=== PATIENT | male | born 1945 | race Caucasian/White ===

== ENCOUNTER 2023-01-03 06:57 | Emergency (ER) | payer BC ==
[~2023-01-03] VITALS: Ht 188 cm; Wt 99.8 kg
[~2023-01-03 06:57] MED LIST: ATOR40TA PO; DILT240C94 PO; FERR236T3 PO; GEMF600T89 PO; LEVO175T2 PO; LOSA-416 PO; NOVRI SQ; NPH,100V2 SQ; OMEG-15 PO; OMEP20CA15 PO; PRAM2.254 PO; RIVA10TA PO; SERT50TA PO; UBID10CA4 PO; ZINC100T2 PO
[2023-01-03 07:16] VITALS: BP 160/81; PULSE 72; TEMP 98.5; O2SAT 95
[2023-01-03] MEDS ORDERED: oxyCODONE/APAP 10/325mg tablet PO ONE (08:20)
[2023-01-03 08:36] VITALS: RESP 16
[2023-01-03 08:38] LABS: BILIRUBIN,URINE NEGATIVE (Neg); CLARITY,URINE CLEAR (Clear); COLOR,URINE YELLOW (Yellow); GLUCOSE, URINE NEGATIVE (Neg); KETONES,URINE NEGATIVE (Neg); LEUKOCYTE ESTERASE ,URINE NEGATIVE (Neg); NITRITES, URINE NEGATIVE (Neg); OCCULT BLOOD,URINE TRACE-INTACT (Neg); PH,URINE 5.5 (4.8-8.0); PROTEIN,URINE 100 mg/dl (Neg); UROBILINOGEN,URINE 0.2 E.U/dL (0.2-1.0)
[2023-01-03 08:39] LABS: UA COLLECTION TYPE CLN CATCH MIDSTREAM
[2023-01-03 08:44] LABS: SQUAMOUS EPITHELIAL CELL,UR FEW /LPF (FEW)
[2023-01-03 08:45] LABS: BACTERIA,URINE FEW /HPF (Neg); RBC,URINE 0-2 /HPF (0-2); WBC,URINE 0-4 /HPF (0-4)
[2023-01-03 08:53] LABS: BASOPHILS # (AUTO) 0.1 X10'3 (0-0.2); BASOPHILS % (AUTO) 0.7 % (0-1); EOSINOPHILS # (AUTO) 0.1 X10'3 (0-0.9); EOSINOPHILS % (AUTO) 1.1 % (0-6); HEMOGLOBIN 13.6 g/dl (14.0-17.9); LYMPHOCYTES # (AUTO) 2.7 X10'3 (1.1-4.8); LYMPHOCYTES % (AUTO) 22.7 % (21-51); MEAN CORPUSCULAR HGB CONC 32.3 g/dL (33.0-36.5); MEAN CORPUSCULAR VOLUME 92.7 FL (78-98); MONOCYTES % (AUTO) 8.4 % (2-12); NEUTROPHILS % (AUTO) 67.1 % (42-75); PLATELET COUNT 373 X10'3 (140-440); RED BLOOD COUNT 4.53 X10'6 (4.70-6.10); RED CELL DISTRIBUTION WIDTH 14.7 % (11.5-14.5); WHITE BLOOD COUNT 11.9 X10'3 (4.5-11.0)
[2023-01-03 09:00] LABS: ALANINE AMINOTRANSFERASE 26 U/L (12-78); ALBUMIN 3.6 G/DL (3.4-5.0); ALBUMIN/GLOBULIN RATIO 0.8 (1.1-1.5); ALKALINE PHOSPHATASE 103 IU/L (46-116); ANION GAP 10 (8-16); ASPARTATE AMINO TRANSFERASE 34 U/L (10-37); BILIRUBIN,TOTAL 0.5 MG/DL (0.1-1.0); BLOOD UREA NITROGEN 19 MG/DL (7-18); BUN/CREATININE RATIO 16.2 (10.0-20.0); CALCIUM 9.3 MG/DL (8.5-10.1); CHLORIDE 103 MMOL/L (99-107); CREATININE 1.17 MG/DL (0.60-1.10); GLUCOSE 104 MG/DL (70-104); POTASSIUM 4.2 MMOL/L (3.5-5.1); SODIUM 136 MMOL/L (135-145); TOTAL CARBON DIOXIDE 23.3 MMOL/L (24-32); eCRCL 62 ML/MIN; eGFR 61 ML/MIN
[2023-01-03 09:07] LABS: PRO BRAIN NATRIURETIC PEPTIDE 764 PG/ML (0-450)
[2023-01-03] MEDS ORDERED: OXYC-138 PO (10:24)
[2023-01-03] MEDS ORDERED: HYDR-3972 PO (10:59)
== END 2023-01-03 10:47 | disposition home or self-care (01) ==
LOC: ER 06:58
DX: S22.41XA Multiple fractures of ribs, right side, initial encounter for closed fracture (principal); Z79.899 Other long term (current) drug therapy; Z79.84 Long term (current) use of oral hypoglycemic drugs; W19.XXXA Unspecified fall, initial encounter; Y93.89 Activity, other specified; Y92.89 Other specified places as the place of occurrence of the external cause; Y99.8 Other external cause status
CPT/HCPCS: 36415; 71250; 80053; 81001; 83880; 84145; 85025; 99284

== ENCOUNTER 2023-04-19 10:15 | Inpatient (IN) | payer BC ==
[~2023-04-19] VITALS: Ht 177.8 cm; Wt 110.5 kg
[~2023-04-19 10:15] MED LIST changes: +OXYC-138 PO
[2023-04-19 10:52] LABS: BASOPHILS # (AUTO) 0.2 X10'3 (0-0.2); BASOPHILS % (AUTO) 1.1 % (0-1); EOSINOPHILS # (AUTO) 0.1 X10'3 (0-0.9); EOSINOPHILS % (AUTO) 0.3 % (0-6); HEMATOCRIT 43.1 % (42.0-52.0); HEMOGLOBIN 14.1 g/dl (14.0-17.9); LYMPHOCYTES # (AUTO) 0.8 X10'3 (1.1-4.8); LYMPHOCYTES % (AUTO) 3.7 % (21-51); MEAN CORPUSCULAR HGB CONC 32.6 g/dL (33.0-36.5); MONOCYTES # (AUTO) 0.7 X10'3 (0-0.9); MONOCYTES % (AUTO) 3.3 % (2-12); NEUTROPHILS # (AUTO) 20.1 X10'3 (1.8-7.7); NEUTROPHILS % (AUTO) 91.6 % (42-75); PLATELET COUNT 377 X10'3 (140-440); RED BLOOD COUNT 4.68 X10'6 (4.70-6.10); WHITE BLOOD COUNT 21.9 X10'3 (4.5-11.0)
[2023-04-19 11:08] LABS: ALANINE AMINOTRANSFERASE 32 U/L (12-78); ALBUMIN 3.4 G/DL (3.4-5.0); ALBUMIN/GLOBULIN RATIO 0.7 (1.1-1.5); ALKALINE PHOSPHATASE 124 IU/L (46-116); ASPARTATE AMINO TRANSFERASE 40 U/L (10-37); BILIRUBIN,TOTAL 0.7 MG/DL (0.1-1.0); BLOOD UREA NITROGEN 24 MG/DL (7-18); BUN/CREATININE RATIO 14.8 (10.0-20.0); CALCIUM 9.1 MG/DL (8.5-10.1); CHLORIDE 99 MMOL/L (99-107); CREATININE 1.62 MG/DL (0.60-1.10); GLUCOSE 243 MG/DL (70-104); TOTAL CARBON DIOXIDE 19.9 MMOL/L (24-32); TOTAL PROTEIN 8.1 G/DL (6.4-8.2); eCRCL 40 ML/MIN; eGFR 42 ML/MIN
[2023-04-19 11:11] LABS: ANION GAP 14 (8-16); POTASSIUM 3.6 MMOL/L (3.5-5.1); SODIUM 133 MMOL/L (135-145)
[2023-04-19] MEDS ORDERED: piperacillin/tazo 3.375gm/50ml 50 ML IV ONE (11:20)
[2023-04-19 11:43] LABS: PRO BRAIN NATRIURETIC PEPTIDE 2712 PG/ML (0-450)
[2023-04-19] MEDS ORDERED: normal saline 1000ml 1,000 ML IV ONE (12:25)
[2023-04-19] MEDS ORDERED: normal saline 1000ML IV soln IVB ONE (12:55)
[2023-04-19] MEDS ORDERED: azithromycin/NS 500mg/250ml 250 ML IV ONE (13:50)
[2023-04-19] MEDS ORDERED: magnesium 4gm in 100ml NS 100 ML IV PRN (14:00)
[2023-04-19] MEDS ORDERED: acetaminophen 650mg rectal suppository RC PRN (14:00)
[2023-04-19] MEDS ORDERED: magnesium 2GM in 50ml NS 50 ML IV PRN (14:00)
[2023-04-19] MEDS ORDERED: normal saline 1000ml 1,000 ML IV SCH (14:00)
[2023-04-19] MEDS ORDERED: mag hydrox/Alum hydrox/simeth 30ml oral suspension PO PRN (14:00)
[2023-04-19] MEDS ORDERED: ondansetron/PF 4mg/2ml inj IV PRN (14:00)
[2023-04-19] MEDS ORDERED: potassium Cl 40MEQ/1/2NS 520ml 520 ML IV PRN (14:00)
[2023-04-19] MEDS ORDERED: magnesium hydroxide 30ml (MOM) UD suspension PO PRN (14:00)
[2023-04-19] MEDS ORDERED: magnesium Cl slow-release 64mg tablet PO PRN (14:00)
[2023-04-19] MEDS ORDERED: potassium Cl 20 mEq SR tablet PO PRN ×2 (14:00)
[2023-04-19 15:34] LABS: BILIRUBIN,URINE SMALL (Neg); CLARITY,URINE TURBID (Clear); COLOR,URINE YELLOW (Yellow); GLUCOSE, URINE NEGATIVE (Neg); KETONES,URINE NEGATIVE (Neg); LEUKOCYTE ESTERASE ,URINE SMALL (Neg); NITRITES, URINE NEGATIVE (Neg); OCCULT BLOOD,URINE MODERATE (Neg); PH,URINE 5.5 (4.8-8.0); PROTEIN,URINE >=300 mg/dl (Neg); UROBILINOGEN,URINE 0.2 E.U/dL (0.2-1.0)
[2023-04-19 15:41] LABS: UA COLLECTION TYPE CLN CATCH MIDSTREAM
[2023-04-19 15:44] LABS: WBC,URINE TNTC /HPF (0-4)
[2023-04-19 15:52] LABS: SQUAMOUS EPITHELIAL CELL,UR FEW /LPF (FEW)
[2023-04-19 15:54] LABS: TRANSITIONAL EPI CELLS,URINE MODERATE /HPF
[2023-04-19 15:59] LABS: BACTERIA,URINE 4+ /HPF (Neg); WBC CLUMPS,URINE MODERATE /HPF (NEGATIVE)
[2023-04-19] MEDS: piperacillin/tazo 3.375gm/50ml 50 ML IV SCH (16:00)
[2023-04-19 16:03] LABS: CELLULAR CAST 0-4 /LPF (NEGATIVE)
[2023-04-19 16:05] LABS: FINE GRANULAR CAST 0-3 /LPF (NEGATIVE)
[2023-04-19 16:20] LABS: AMORPHOUS URATES 2+
[2023-04-19 16:52] LABS: MAGNESIUM 1.5 MG/DL (1.5-2.4)
[2023-04-19] MEDS ORDERED: furosemide 40mg/4ml inj IV STA (17:26)
[2023-04-19 17:39] LABS: ABG HCO3 18.8 mmol/L (22.0-26.0); ABG OXYGEN SATURATION 95.5 % (94-97); ABG PCO2 (T) 35.1 mmHg (35.0-48.0); ABG PH (T) 7.346 (7.340-7.440); ALLEN'S TEST POSITIVE; FCOHb 0.7 % (0.0-3.9); FHHb 4.5 % (0.0-5.0); FLOW 6 L/min; FMetHb 0.3 % (0.0-1.5); FO2Hb 94.5 % (94-97); MODE NASAL CANNULA; TOTAL HEMOGLOBIN 14.4 G/dl (14.0-17.9)
[2023-04-19] MEDS: acetaminophen 325mg tablet PO PRN (19:05)
[2023-04-19] MEDS: furosemide 40mg/4ml inj IV SCH (20:57)
[2023-04-19] MEDS: docusate sod 100mg capsule PO SCH (20:57)
[2023-04-19] MEDS: K and/or MAG REPLACEMENT MC SCH (20:58)
[2023-04-19] MEDS ORDERED: temazepam 15mg capsule PO PRN (21:00)
[2023-04-19 21:43] LABS: MAGNESIUM 1.5 MG/DL (1.5-2.4); POTASSIUM 3.8 MMOL/L (3.5-5.1)
[2023-04-20] MEDS: piperacillin/tazo 3.375gm/50ml 50 ML IV SCH ×3 (00:43→16:32)
[2023-04-20] MEDS: K and/or MAG REPLACEMENT MC SCH ×2 (08:00→20:00)
[2023-04-20] MEDS ORDERED: azithromycin 250mg tablet PO SCH (08:00)
[2023-04-20 08:51] LABS: EOSINOPHILS % (AUTO) 0 % (0-6); HEMOGLOBIN 13.1 g/dl (14.0-17.9); LYMPHOCYTES # (AUTO) 2.7 X10'3 (1.1-4.8); MEAN CORPUSCULAR HGB CONC 32.3 g/dL (33.0-36.5); MEAN PLATELET VOLUME 9.6 FL (7.4-10.4)
[2023-04-20] MEDS: docusate sod 100mg capsule PO SCH ×2 (08:52→20:00)
[2023-04-20 08:54] LABS: BASOPHILS # (AUTO) 0.1 X10'3 (0-0.2); BASOPHILS % (AUTO) 0.3 % (0-1); HEMATOCRIT 40.6 % (42.0-52.0); LYMPHOCYTES % (AUTO) 9.9 % (21-51); MEAN CORPUSCULAR HEMOGLOBIN 29.7 PG (27.0-31.0); MEAN CORPUSCULAR VOLUME 91.8 FL (78-98); MONOCYTES # (AUTO) 1.4 X10'3 (0-0.9); NEUTROPHILS # (AUTO) 23.4 X10'3 (1.8-7.7); NEUTROPHILS % (AUTO) 84.8 % (42-75); PLATELET COUNT 335 X10'3 (140-440); RED BLOOD COUNT 4.42 X10'6 (4.70-6.10); RED CELL DISTRIBUTION WIDTH 15.2 % (11.5-14.5)
[2023-04-20] MEDS: acetaminophen 325mg tablet PO PRN ×2 (08:57→15:28)
[2023-04-20 09:01] LABS: WHITE BLOOD COUNT 27.5 X10'3 (4.5-11.0)
[2023-04-20 09:26] LABS: ANION GAP 13 (8-16); BLOOD UREA NITROGEN 31 MG/DL (7-18); BUN/CREATININE RATIO 17.5 (10.0-20.0); CHLORIDE 101 MMOL/L (99-107); CREATININE 1.77 MG/DL (0.60-1.10); GLUCOSE 175 MG/DL (70-104); POTASSIUM 3.5 MMOL/L (3.5-5.1); SODIUM 136 MMOL/L (135-145)
[2023-04-20 09:27] LABS: ALANINE AMINOTRANSFERASE 39 U/L (12-78); ALBUMIN 3.1 G/DL (3.4-5.0); ALBUMIN/GLOBULIN RATIO 0.6 (1.1-1.5); ALKALINE PHOSPHATASE 87 IU/L (46-116); ASPARTATE AMINO TRANSFERASE 125 U/L (10-37); BILIRUBIN,TOTAL 0.9 MG/DL (0.1-1.0); CALCIUM 8.8 MG/DL (8.5-10.1); MAGNESIUM 1.7 MG/DL (1.5-2.4); TOTAL PROTEIN 7.9 G/DL (6.4-8.2); eCRCL 37 ML/MIN; eGFR 38 ML/MIN
[2023-04-20] MEDS ORDERED: VANCOmycin 2,000MG in NS 500ml IV soln IV ONE (09:30)
[2023-04-20 10:39] LABS: PLATELET ESTIMATE NORMAL; TOTAL CELLS COUNTED 100
[2023-04-20] MEDS: furosemide 40mg/4ml inj IV SCH (11:23)
[2023-04-20] MEDS ORDERED: MESSAGE TO PHARMACY PO ONE (14:05)
[2023-04-20] MEDS ORDERED: dextrose 50%-water 50ml dispensing syringe IV PRN ×2 (14:05)
[2023-04-20] MEDS ORDERED: DEXTROSE 15 GM of carb/4 tabs (each vial/BOTTLE has 4 tablets) PO PRN ×2 (14:05)
[2023-04-20] MEDS ORDERED: glucagon, human recombinant 1mg kit SUBCUT PRN (14:05)
[2023-04-20] MEDS ORDERED: FLO0.4C PO (14:38)
[2023-04-20] MEDS ORDERED: SYN0.088T PO (14:38)
[2023-04-20] MEDS ORDERED: NPH,100V2 SQ (14:44)
[2023-04-20] MEDS ORDERED: INSU100V5 IJ (14:44)
[2023-04-20 14:47] LABS: HEMOGLOBIN A1C 7.9 % (4.5-6.2)
[2023-04-20 17:30] LABS: THYROID STIMULATING HORMONE 5.49 ulU/ml (0.34-4.50)
[2023-04-20 19:15] VITALS: BP 129/52; PULSE 95; RESP 24; TEMP 98.8; O2SAT 97
[2023-04-20 20:00] VITALS: RESP 22; O2SAT 96
[2023-04-20] MEDS: losartan 50mg tablet PO SCH (20:50)
[2023-04-20] MEDS: pramipexole 0.25mg tablet PO SCH (20:51)
[2023-04-20] MEDS: sertraline 50mg tablet PO SCH (20:51)
[2023-04-20] MEDS: atorvastatin 10mg tablet PO SCH (20:51)
[2023-04-20] MEDS: insulin glargine (Lantus) pen - multi-dose SQ SCH (21:55)
[2023-04-20] MEDS: insulin Lispro (HumaLOG) vial - multi-dose SQ SCH (21:56)
[2023-04-20 22:00] VITALS: BP 120/63; PULSE 77; RESP 18; TEMP 97.6; O2SAT 93
[2023-04-20] MEDS ORDERED: vancomycin/NS 1 GM ADD-VANTAGE 250 ML IV SCH (22:00)
[2023-04-20] MEDS: rivaroxaban 20mg tablet PO SCH (22:00)
[2023-04-21] MEDS: piperacillin/tazo 3.375gm/50ml 50 ML IV SCH (01:42)
[2023-04-21 02:00] VITALS: BP 131/83; PULSE 65; RESP 19; TEMP 97.4; O2SAT 96
[2023-04-21 06:12] LABS: BASOPHILS # (AUTO) 0.1 X10'3 (0-0.2); BASOPHILS % (AUTO) 0.6 % (0-1); EOSINOPHILS # (AUTO) 0.1 X10'3 (0-0.9); EOSINOPHILS % (AUTO) 0.3 % (0-6); HEMATOCRIT 39.8 % (42.0-52.0); HEMOGLOBIN 12.9 g/dl (14.0-17.9); LYMPHOCYTES # (AUTO) 2.2 X10'3 (1.1-4.8); LYMPHOCYTES % (AUTO) 12.6 % (21-51); MEAN CORPUSCULAR HEMOGLOBIN 29.9 PG (27.0-31.0); MEAN CORPUSCULAR HGB CONC 32.5 g/dL (33.0-36.5); MEAN CORPUSCULAR VOLUME 92.2 FL (78-98); MEAN PLATELET VOLUME 9.5 FL (7.4-10.4); MONOCYTES # (AUTO) 1.2 X10'3 (0-0.9); MONOCYTES % (AUTO) 6.9 % (2-12); NEUTROPHILS # (AUTO) 13.8 X10'3 (1.8-7.7); NEUTROPHILS % (AUTO) 79.6 % (42-75); PLATELET COUNT 331 X10'3 (140-440); RED BLOOD COUNT 4.32 X10'6 (4.70-6.10); WHITE BLOOD COUNT 17.3 X10'3 (4.5-11.0)
[2023-04-21 06:32] LABS: ALANINE AMINOTRANSFERASE 34 U/L (12-78); ALBUMIN 2.6 G/DL (3.4-5.0); ALBUMIN/GLOBULIN RATIO 0.5 (1.1-1.5); ALKALINE PHOSPHATASE 71 IU/L (46-116); ANION GAP 10 (8-16); ASPARTATE AMINO TRANSFERASE 93 U/L (10-37); BILIRUBIN,TOTAL 0.6 MG/DL (0.1-1.0); BLOOD UREA NITROGEN 32 MG/DL (7-18); BUN/CREATININE RATIO 22.4 (10.0-20.0); CALCIUM 9.1 MG/DL (8.5-10.1); CHLORIDE 99 MMOL/L (99-107); CREATININE 1.43 MG/DL (0.60-1.10); GLUCOSE 231 MG/DL (70-104); MAGNESIUM 1.9 MG/DL (1.5-2.4); POTASSIUM 3.8 MMOL/L (3.5-5.1); SODIUM 136 MMOL/L (135-145); TOTAL CARBON DIOXIDE 26.9 MMOL/L (24-32); TOTAL PROTEIN 7.4 G/DL (6.4-8.2); eCRCL 45 ML/MIN; eGFR 48 ML/MIN
[2023-04-21 07:00] VITALS: BP 147/75; PULSE 68; RESP 24; TEMP 97.8; O2SAT 97
[2023-04-21] MEDS: docusate sod 100mg capsule PO SCH ×2 (08:00→19:40)
[2023-04-21] MEDS: K and/or MAG REPLACEMENT MC SCH ×2 (08:00→19:39)
[2023-04-21] MEDS: pantoprazole 40mg Tablet.DR PO SCH (08:12)
[2023-04-21] MEDS: levoTHYROXINE 88mcg tablet PO SCH (08:12)
[2023-04-21] MEDS: furosemide 40mg/4ml inj IV SCH (08:12)
[2023-04-21] MEDS: tamsulosin 0.4mg capsule PO SCH (08:21)
[2023-04-21] MEDS: diltiazem CD 120mg capsule (once-daily) PO SCH (08:22)
[2023-04-21] MEDS: pramipexole 0.25mg tablet PO SCH ×3 (08:22→20:15)
[2023-04-21] MEDS: insulin Lispro (HumaLOG) vial - multi-dose SQ SCH ×3 (10:25→21:17)
[2023-04-21] MEDS: CefTRIAXone/D5W-Rocephin 1gm 50 ML IV SCH (10:54)
[2023-04-21 12:39] LABS: C DIFF ANTIGEN NEGATIVE (NEGATIVE); C DIFF SPECIMEN=DIARRHEA? ACCEPTABLE; C DIFFICILE TOXINS A&B NEGATIVE (Neg)
[2023-04-21 15:00] VITALS: BP 135/66; PULSE 69; RESP 16; TEMP 97.7; O2SAT 100
[2023-04-21 18:00] VITALS: BP 124/55; PULSE 60; RESP 18; TEMP 98.1; O2SAT 91
[2023-04-21 20:00] VITALS: RESP 20; O2SAT 95
[2023-04-21] MEDS: sertraline 50mg tablet PO SCH (20:15)
[2023-04-21] MEDS: losartan 50mg tablet PO SCH (20:15)
[2023-04-21] MEDS: atorvastatin 10mg tablet PO SCH (20:15)
[2023-04-21] MEDS: insulin glargine (Lantus) pen - multi-dose SQ SCH (21:16)
[2023-04-21] MEDS ORDERED: VANCOMYCIN LEVEL IV ONE (21:30)
[2023-04-21 22:00] VITALS: BP 122/65; PULSE 81; RESP 20; TEMP 97.8; O2SAT 94
[2023-04-22] VITALS (8 sets, daily range): BP systolic 118–140; BP diastolic 59–75; PULSE 12–86; RESP 18–24; TEMP 97.6–100.2; O2SAT 92–96
[2023-04-22 07:40] LABS: BASOPHILS # (AUTO) 0.1 X10'3 (0-0.2); BASOPHILS % (AUTO) 0.6 % (0-1); EOSINOPHILS # (AUTO) 0.1 X10'3 (0-0.9); EOSINOPHILS % (AUTO) 0.9 % (0-6); HEMOGLOBIN 13.3 g/dl (14.0-17.9); LYMPHOCYTES # (AUTO) 1.5 X10'3 (1.1-4.8); LYMPHOCYTES % (AUTO) 15.9 % (21-51); MEAN CORPUSCULAR HEMOGLOBIN 30.2 PG (27.0-31.0); MEAN CORPUSCULAR HGB CONC 32.6 g/dL (33.0-36.5); MEAN CORPUSCULAR VOLUME 92.6 FL (78-98); MEAN PLATELET VOLUME 9.8 FL (7.4-10.4); MONOCYTES # (AUTO) 0.8 X10'3 (0-0.9); MONOCYTES % (AUTO) 8.4 % (2-12); NEUTROPHILS # (AUTO) 7.2 X10'3 (1.8-7.7); NEUTROPHILS % (AUTO) 74.2 % (42-75); PLATELET COUNT 347 X10'3 (140-440); RED BLOOD COUNT 4.42 X10'6 (4.70-6.10); RED CELL DISTRIBUTION WIDTH 14.9 % (11.5-14.5); WHITE BLOOD COUNT 9.6 X10'3 (4.5-11.0)
[2023-04-22 07:44] LABS: ALANINE AMINOTRANSFERASE 36 U/L (12-78); ALBUMIN 2.6 G/DL (3.4-5.0); ALBUMIN/GLOBULIN RATIO 0.5 (1.1-1.5); ALKALINE PHOSPHATASE 85 IU/L (46-116); ANION GAP 9 (8-16); ASPARTATE AMINO TRANSFERASE 67 U/L (10-37); BILIRUBIN,TOTAL 0.4 MG/DL (0.1-1.0); BLOOD UREA NITROGEN 39 MG/DL (7-18); BUN/CREATININE RATIO 27.9 (10.0-20.0); CALCIUM 9.3 MG/DL (8.5-10.1); CHLORIDE 99 MMOL/L (99-107); GLUCOSE 213 MG/DL (70-104); MAGNESIUM 1.8 MG/DL (1.5-2.4); POTASSIUM 4.1 MMOL/L (3.5-5.1); SODIUM 135 MMOL/L (135-145); TOTAL CARBON DIOXIDE 27.4 MMOL/L (24-32); TOTAL PROTEIN 7.4 G/DL (6.4-8.2); eCRCL 46 ML/MIN; eGFR 49 ML/MIN
[2023-04-22] MEDS: K and/or MAG REPLACEMENT MC SCH ×2 (08:00→19:24)
[2023-04-22] MEDS: diltiazem CD 120mg capsule (once-daily) PO SCH (09:07)
[2023-04-22] MEDS: pramipexole 0.25mg tablet PO SCH ×3 (09:07→21:06)
[2023-04-22] MEDS: levoTHYROXINE 88mcg tablet PO SCH (09:07)
[2023-04-22] MEDS: pantoprazole 40mg Tablet.DR PO SCH (09:07)
[2023-04-22] MEDS: docusate sod 100mg capsule PO SCH ×2 (09:18→19:24)
[2023-04-22] MEDS: tamsulosin 0.4mg capsule PO SCH (09:18)
[2023-04-22] MEDS: CefTRIAXone/D5W-Rocephin 1gm 50 ML IV SCH (09:19)
[2023-04-22] MEDS: furosemide 40mg/4ml inj IV SCH (09:21)
[2023-04-22] MEDS: insulin Lispro (HumaLOG) vial - multi-dose SQ SCH ×4 (09:25→22:21)
[2023-04-22] MEDS: acetaminophen 325mg tablet PO PRN (14:13)
[2023-04-22] MEDS: rivaroxaban 20mg tablet PO SCH (17:54)
[2023-04-22] MEDS: sertraline 50mg tablet PO SCH (21:06)
[2023-04-22] MEDS: losartan 50mg tablet PO SCH (21:06)
[2023-04-22] MEDS: atorvastatin 10mg tablet PO SCH (21:06)
[2023-04-22] MEDS: insulin glargine (Lantus) pen - multi-dose SQ SCH (22:24)
[2023-04-23 01:40] VITALS: BP 132/81; PULSE 94; RESP 21; TEMP 98.7; O2SAT 93
[2023-04-23 07:00] VITALS: BP 149/74; PULSE 74; RESP 16; TEMP 98; O2SAT 98
[2023-04-23] MEDS: K and/or MAG REPLACEMENT MC SCH (08:00)
[2023-04-23 08:03] LABS: BASOPHILS % (AUTO) 0.5 % (0-1); EOSINOPHILS % (AUTO) 0.1 % (0-6); HEMOGLOBIN 14.3 g/dl (14.0-17.9); LYMPHOCYTES # (AUTO) 1.3 X10'3 (1.1-4.8); LYMPHOCYTES % (AUTO) 15.1 % (21-51); MEAN CORPUSCULAR HEMOGLOBIN 30.3 PG (27.0-31.0); MEAN CORPUSCULAR HGB CONC 33.2 g/dL (33.0-36.5); MEAN CORPUSCULAR VOLUME 91.4 FL (78-98); MEAN PLATELET VOLUME 9.8 FL (7.4-10.4); MONOCYTES # (AUTO) 0.7 X10'3 (0-0.9); MONOCYTES % (AUTO) 8.2 % (2-12); NEUTROPHILS # (AUTO) 6.6 X10'3 (1.8-7.7); NEUTROPHILS % (AUTO) 76.1 % (42-75); PLATELET COUNT 362 X10'3 (140-440); RED BLOOD COUNT 4.71 X10'6 (4.70-6.10); RED CELL DISTRIBUTION WIDTH 14.8 % (11.5-14.5); WHITE BLOOD COUNT 8.6 X10'3 (4.5-11.0)
[2023-04-23 08:39] LABS: ALANINE AMINOTRANSFERASE 46 U/L (12-78); ALBUMIN 2.7 G/DL (3.4-5.0); ALBUMIN/GLOBULIN RATIO 0.5 (1.1-1.5); ALKALINE PHOSPHATASE 84 IU/L (46-116); ANION GAP 10 (8-16); ASPARTATE AMINO TRANSFERASE 101 U/L (10-37); BILIRUBIN,TOTAL 0.4 MG/DL (0.1-1.0); BLOOD UREA NITROGEN 34 MG/DL (7-18); BUN/CREATININE RATIO 23.4 (10.0-20.0); CALCIUM 9.4 MG/DL (8.5-10.1); CHLORIDE 95 MMOL/L (99-107); CREATININE 1.45 MG/DL (0.60-1.10); GLUCOSE 213 MG/DL (70-104); MAGNESIUM 1.9 MG/DL (1.5-2.4); POTASSIUM 3.9 MMOL/L (3.5-5.1); SODIUM 132 MMOL/L (135-145); TOTAL CARBON DIOXIDE 26.9 MMOL/L (24-32); TOTAL PROTEIN 7.8 G/DL (6.4-8.2); eCRCL 44 ML/MIN; eGFR 47 ML/MIN
[2023-04-23] MEDS: diltiazem CD 120mg capsule (once-daily) PO SCH (09:44)
[2023-04-23] MEDS: pantoprazole 40mg Tablet.DR PO SCH (09:44)
[2023-04-23] MEDS: pramipexole 0.25mg tablet PO SCH (09:44)
[2023-04-23] MEDS: furosemide 40mg/4ml inj IV SCH (09:45)
[2023-04-23] MEDS: CefTRIAXone/D5W-Rocephin 1gm 50 ML IV SCH (09:46)
[2023-04-23] MEDS: docusate sod 100mg capsule PO SCH (09:46)
[2023-04-23] MEDS: levoTHYROXINE 88mcg tablet PO SCH (09:49)
[2023-04-23] MEDS: tamsulosin 0.4mg capsule PO SCH (09:51)
[2023-04-23] MEDS: insulin Lispro (HumaLOG) vial - multi-dose SQ SCH (10:00)
[2023-04-23 10:30] VITALS: BP 137/77; PULSE 81; RESP 20; TEMP 97.9; O2SAT 98
[2023-04-23] MEDS ORDERED: CEFD300C3 PO (12:15)
[2023-04-23 14:41] VITALS: BP 137/73; PULSE 88; RESP 16; TEMP 99; O2SAT 97
== END 2023-04-23 15:15 | disposition home health service (06) | DRG 871 ==
LOC: ER 10:15 → ED HOLD 14:03 → EDBEDREQ 04-20 18:02 → PCU 3S 04-20 19:01
PROVIDERS: ADMIT Family Medicine; ATTEND Family Medicine
DX: A41.51 Sepsis due to Escherichia coli [E. coli] (principal); I21.A1 Myocardial infarction type 2; J96.90 Respiratory failure, unspecified, unspecified whether with hypoxia or hypercapnia; N39.0 Urinary tract infection, site not specified; E87.1 Hypo-osmolality and hyponatremia; N17.9 Acute kidney failure, unspecified; I13.0 Hypertensive heart and chronic kidney disease with heart failure and stage 1 through stage 4 chronic kidney disease, or unspecified chronic kidney disease; E78.00 Pure hypercholesterolemia, unspecified; I48.91 Unspecified atrial fibrillation; N40.0 Benign prostatic hyperplasia without lower urinary tract symptoms; K21.9 Gastro-esophageal reflux disease without esophagitis; J98.4 Other disorders of lung; Z20.822 Contact with and (suspected) exposure to COVID-19; I50.9 Heart failure, unspecified; E11.22 Type 2 diabetes mellitus with diabetic chronic kidney disease; F32.A Depression, unspecified; E03.9 Hypothyroidism, unspecified; G47.33 Obstructive sleep apnea (adult) (pediatric); N18.9 Chronic kidney disease, unspecified; Z79.01 Long term (current) use of anticoagulants; Z87.891 Personal history of nicotine dependence; Z90.81 Acquired absence of spleen; Z90.49 Acquired absence of other specified parts of digestive tract; Z79.899 Other long term (current) drug therapy
CPT/HCPCS: 36415; 36600; 71045; 71250; 74176; 80053; 81001; 82803; 82948; 83036; 83605; 83735; 83880; 84132; 84145; 84443; 84484; 85007; 85018; 85025; 87040; 87077; 87081; 87088; 87186; 87324; 87449; 87502; 87503; 87811; 93306; 96361; 96365; 99285; C1758; G0378; J0456; J0696; J1815; J1940; J2543; J3370; J7030; J7040

== ENCOUNTER 2023-07-29 10:55 | Emergency (ER) | payer BC ==
[~2023-07-29] VITALS: Ht 185.4 cm; Wt 106.4 kg
[~2023-07-29 10:55] MED LIST changes: -FERR236T3 PO; +FLO0.4C PO; +INSU100V5 IJ; -LEVO175T2 PO; -OXYC-138 PO; +SYN0.088T PO; -ZINC100T2 PO
[2023-07-29 11:27] LABS: BASOPHILS % (AUTO) 0.3 % (0-1); EOSINOPHILS # (AUTO) 0.2 X10'3 (0-0.9); EOSINOPHILS % (AUTO) 1.6 % (0-6); HEMATOCRIT 37.3 % (42.0-52.0); LYMPHOCYTES # (AUTO) 3.4 X10'3 (1.1-4.8); LYMPHOCYTES % (AUTO) 29.9 % (21-51); MEAN CORPUSCULAR HEMOGLOBIN 29.5 PG (27.0-31.0); MEAN CORPUSCULAR HGB CONC 32.1 g/dL (33.0-36.5); MEAN PLATELET VOLUME 8.7 FL (7.4-10.4); MONOCYTES # (AUTO) 1.1 X10'3 (0-0.9); MONOCYTES % (AUTO) 9.8 % (2-12); NEUTROPHILS # (AUTO) 6.6 X10'3 (1.8-7.7); NEUTROPHILS % (AUTO) 58.4 % (42-75); PLATELET COUNT 461 X10'3 (140-440); RED BLOOD COUNT 4.05 X10'6 (4.70-6.10); RED CELL DISTRIBUTION WIDTH 14.8 % (11.5-14.5); WHITE BLOOD COUNT 11.3 X10'3 (4.5-11.0)
[2023-07-29 11:28] VITALS: TEMP 97.9
[2023-07-29 13:13] LABS: BILIRUBIN,URINE NEGATIVE (Neg); CLARITY,URINE CLEAR (Clear); COLOR,URINE YELLOW (Yellow); GLUCOSE, URINE 100 mg/dl (Neg); KETONES,URINE NEGATIVE (Neg); LEUKOCYTE ESTERASE ,URINE NEGATIVE (Neg); NITRITES, URINE NEGATIVE (Neg); OCCULT BLOOD,URINE SMALL (Neg); PROTEIN,URINE >=300 mg/dl (Neg); UROBILINOGEN,URINE 0.2 E.U/dL (0.2-1.0)
[2023-07-29 13:19] LABS: UA COLLECTION TYPE VOIDED
[2023-07-29 13:21] LABS: BACTERIA,URINE NONE SEEN /HPF (Neg); HYALINE CASTS 0-3 /LPF (NEGATIVE); RBC,URINE 0-2 /HPF (0-2); SQUAMOUS EPITHELIAL CELL,UR FEW /LPF (FEW); WBC,URINE 0-4 /HPF (0-4)
[2023-07-29 14:47] VITALS: BP 165/88; PULSE 80; RESP 11; O2SAT 97
[2023-07-29 16:06] LABS: APTT 35 SECONDS (22-32); INR 1.1 INR; PROTHROMBIN TIME 11.7 SECONDS (9.0-12.0)
[2023-07-29 16:11] LABS: ALBUMIN 3.2 G/DL (3.4-5.0); ANION GAP 11 (8-16); BLOOD UREA NITROGEN 15 MG/DL (7-18); BUN/CREATININE RATIO 12.8 (10.0-20.0); CALCIUM 8.8 MG/DL (8.5-10.1); CHLORIDE 103 MMOL/L (99-107); CREATININE 1.17 MG/DL (0.60-1.10); GLUCOSE 260 MG/DL (70-104); MAGNESIUM 1.7 MG/DL (1.5-2.4); POTASSIUM 4.3 MMOL/L (3.5-5.1); SODIUM 138 MMOL/L (135-145); TOTAL CARBON DIOXIDE 23.9 MMOL/L (24-32); eCRCL 60 ML/MIN; eGFR 60 ML/MIN
== END 2023-07-29 17:03 | disposition home or self-care (01) ==
LOC: ER 10:55
DX: E11.649 Type 2 diabetes mellitus with hypoglycemia without coma (principal); E78.00 Pure hypercholesterolemia, unspecified; I10 Essential (primary) hypertension; K21.9 Gastro-esophageal reflux disease without esophagitis; R79.1 Abnormal coagulation profile; Z79.899 Other long term (current) drug therapy; Z79.84 Long term (current) use of oral hypoglycemic drugs; Z79.2 Long term (current) use of antibiotics
CPT/HCPCS: 36415; 71045; 80048; 81001; 82948; 83605; 83735; 84484; 85025; 85610; 85730; 87040; 93005; 99285